=== PATIENT | female | born 1985 | race Caucasian/White ===

== ENCOUNTER 2022-05-08 06:25 | Emergency (ER) | payer OTHER ==
[2022-05-08 07:06] LABS: BASOPHIL 1.1 % (0-2); EOSINOPHIL 5.9 % (0-5); HCT 36.5 % (37.0-47.0); HGB 11.7 g/dl (12.5-16.0); LYMPHOCYTE 24.9 % (15-48); MCH 29.6 pg (25.0-31.0); MCHC 32.1 g/dL (32.0-36.0); MCV 92.4 fL (78.0-100.0); MONOCYTE 8.8 % (0-12); MPV 12.5 fL (6.0-9.5); NEUTROPHIL 58.9 % (41-80); NRBC 0; PLT 170 K/uL (150-400); RBC 3.95 M/uL (4.20-5.40); WBC 5.6 K/uL (4.0-10.5)
[2022-05-08 07:21] LABS: ALBUMIN 3.3 g/dL (3.4-5.0); BILIRUBIN - TOTAL 0.4 mg/dL (0.2-1.0); BUN/CREAT RATIO (CALC) 25.3 RATIO; CREATININE 0.75 mg/dL (0.51-0.95); GLOBULIN (CALCULATION) 2.7 g/dL; POTASSIUM 3.8 mmol/L (3.5-5.1)
[2022-05-08 08:11] LABS: AMPHETAMINES NEGATIVE (NEGATIVE); BARBITURATES NEGATIVE (NEGATIVE); ECSTASY (MDMA) NEGATIVE (NEGATIVE); MARIJUANA (THC) NEGATIVE (NEGATIVE); METHADONE NEGATIVE (NEGATIVE); OPIATES NEGATIVE (NEGATIVE); OXYCODONE NEGATIVE (NEGATIVE)
== END 2022-05-08 10:03 | disposition home or self-care (01) ==
LOC: EDBD 06:25 → FER 06:25
PROVIDERS: Emergency Medicine
DX: R55 Syncope and collapse (principal); Z28.310 Unvaccinated for COVID-19; Z88.1 Allergy status to other antibiotic agents; Z88.5 Allergy status to narcotic agent; Z88.6 Allergy status to analgesic agent
CPT/HCPCS: 36415; 80053; 80305; 84484; 84703; 85025; 93005; G0480; J2405; J7120